=== PATIENT | male | born 1930 | race Caucasian/White ===

== ENCOUNTER 2017-05-27 11:49 | Emergency (ER) | payer MEDICARE, BC ==
--- NOTE | 2017-05-27 12:09 | Emergency Department Record ---
History of Present Illness - General Chief Complaint: Shortness of breath Stated Complaint: [place] Time Seen by Provider: 05/27/17 12:03 Source: Patient, Family Mode of Arrival: Ambulatory Limitations: No limitations - History of Present Illness Initial Comments: 86 yo male presents with about 2 weeks of shortness of breath that has been increasing. He has noted the symptoms with exertion. He has a home Biox monitor. At rest he is about 91%. With waking he drops to the low 80%'s. He has been developing chest pain with walking as well. He has taken nitro on at least three occasions the last week. He ran out of nitro. He has a known history of CHF and a pacemaker. He and his family deny a history of stents or CABG. 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 PCP is Dr Christopher. Complaint: Shortness of breath -: Week(s) (2) Severity: Moderate Quality: Aching Consistency: Intermittent Improves With: Rest Worsens With: Exertion Known History Of: Congestive heart failure Context: Occurred during exertion Associated Symptoms: Chest pain Treatments Prior to Arrival: None - Related Data Home Medications Medication Instructions Recorded Confirmed Last Taken Allopurinol [Zyloprim] 100 mg PO DAILY 05/27/17 05/27/17 1 Day Ago ~05/26/17 Amlodipine Besylate 5 mg PO DAILY 05/27/17 05/27/17 1 Day Ago ~05/26/17 Aspirin 81 mg PO DAILY 05/27/17 05/27/17 1 Day Ago ~05/26/17 Atorvastatin Calcium [Lipitor] 80 mg PO DAILY 05/27/17 05/27/17 1 Day Ago ~05/26/17 Buprenorphine [Butrans] 1 each TD ASDIR 05/27/17 05/27/17 1 Day Ago ~05/26/17 Calcitriol 0.25 mcg PO DAILY 05/27/17 05/27/17 1 Day Ago ~05/26/17 Calcium Carbonate [Calcium] 500 mg PO TID 05/27/17 05/27/17 1 Day Ago ~05/26/17 Enalapril Maleate [Vasotec] 10 mg PO BID 05/27/17 05/27/17 1 Day Ago ~05/26/17 Glipizide [Glucotrol] 10 mg PO BID 05/27/17 05/27/17 1 Day Ago ~05/26/17 Magnesium Oxide [Magnesium] 250 mg PO TID 05/27/17 05/27/17 1 Day Ago ~05/26/17 [place]-3 Fatty Acids/Fish Oil [Fish 1 each PO DAILY 05/27/17 05/27/17 1 Day Ago Oil 1,000 mg Capsule] ~05/26/17 Omeprazole Magnesium [Prilosec Otc] 20 mg PO DAILY 05/27/17 05/27/17 1 Day Ago ~05/26/17 Sotalol HCl [Sotalol] 80 mg PO BID 05/27/17 05/27/17 1 Day Ago ~05/26/17 Tamsulosin HCl [Flomax] 0.4 mg PO DAILY 05/27/17 05/27/17 1 Day Ago ~05/26/17 Warfarin Sodium [Coumadin] 2 mg PO DAILY 05/27/17 05/27/17 1 Day Ago ~05/26/17 Allergies Allergy/AdvReac Type Severity Reaction Status Date / Time No Known Drug Allergies Allergy Verified 05/27/17 12:04 Review of Systems Constitutional: Denies: Chills, Fever, Malaise, Weakness Eyes: Denies: Eye discharge, Eye pain, Photophobia, Vision change ENT: Denies: Congestion, Throat pain Respiratory: Reports: Dyspnea. Denies: Cough, Hemoptysis, Stridor, Wheezes Cardiovascular: Reports: Chest pain, Dyspnea on exertion, Edema. Denies: Arrhythmia, Palpitations, Syncope Endocrine: Denies: Fatigue, Polydipsia, Polyuria Gastrointestinal: Denies: Abdominal pain, Diarrhea, Nausea, Vomiting Genitourinary: Denies: Dysuria, Frequency, Hematuria Musculoskeletal: Denies: Arthralgia, Back pain, Myalgia Skin: Denies: Bruising, Change in color, Rash Neurological: Denies: Headache, Numbness, Vertigo, Weakness Psychiatric: Denies: Anxiety Hematological/Lymphatic: Denies: Blood Clots, Easy bleeding, Easy bruising, Swollen glands Physical Exam - General General Appearance: Alert, Oriented x3, Cooperative, No acute distress Limitations: No limitations - Head Head exam: Normal inspection - Eye Eye exam: Normal appearance. negative: Conjunctival injection, Periorbital swelling - ENT ENT exam: Normal exam, Mucous membranes moist Ear exam: Normal external inspection Nasal Exam: Normal inspection Mouth exam: Normal external inspection - Neck Neck exam: Normal inspection, Full ROM. negative: Tenderness - Respiratory Respiratory exam: Decreased breath sounds, Rales (in bases). negative: Accessory muscle use, Prolonged expiratory, Respiratory distress, Wheezes - Cardiovascular Cardiovascular Exam: Regular rate, Normal rhythm, Normal heart sounds Peripheral Pulses: 2+: Radial (R), Radial (L) - GI/Abdominal GI/Abdominal exam: Soft. negative: Tenderness - Rectal Rectal exam: Deferred - exam: Deferred - Extremities Extremities exam: Full ROM, Normal capillary refill, Pedal edema. negative: Joint swelling, Tenderness - Back Back exam: Reports: Normal inspection, Full ROM. Denies: CVA tenderness (R), CVA tenderness (L), Muscle spasm, Rash noted, Tenderness - Neurological Neurological exam: Alert, Normal gait, Oriented X3 - Psychiatric Psychiatric exam: Normal affect, Normal mood. negative: Agitated, Anxious - Skin Skin exam: Dry, Intact, Normal color, Warm Course - Reevaluation(s) Reevaluation #1: 05/27/17 12:46 EKG atrial paced, rate of 60, axis left, T wave inversion V1-V6, No old, QTC 541 , [place] Left. No acute changes on the CBC 05/27/17 12:47 05/27/17 13:29 The labs were reviewed. the CR is 1.5 The BNP is elevated at 9771 The Troponin is elevated at 0.035 CXR is consistent with CHF 05/27/17 13:32 Lasix and Aspirin given The patient and his daughter [place] [facility] [place] for further work up. 05/27/17 14:34 I ILDA Dumont of [facility] [place] the patient for transfer and cardiology consultation Medical Decision Making - Lab Data Result diagrams: 05/27/17 12:27 05/27/17 12:27 Disposition Disposition: Transfer Clinical Impression: Dyspnea Qualifiers: Dyspnea type: unspecified Qualified Code(s): R06.00 - Dyspnea, unspecified Chest pain Qualifiers: Chest pain type: unspecified Qualified Code(s): R07.9 - Chest pain, unspecified CHF (congestive heart failure) Qualifiers: Congestive heart failure chronicity: unspecified congestive heart failure chronicity Disposition: Acute Care Hospital Transfer [place] [facility] [place] For Transfer: CHF Accepting Physician: Julia Time Discussed w/Accepting Physician: 13:36 Condition: (2) Stable Forms: Patient Portal Access Time of Disposition: 13:36 Quality - Quality Measures Quality Measures: N/A - Blood Pressure Screening Does Patient Have Any of the Following: No Blood Pressure Classification: Hypertensive Reading Systolic Measurement: 149 Diastolic Measurement: 106 Screening for High Blood Pressure: < Pre-Hypertensive BP, F/U Documented > [ [id number]] Pre-Hypertensive Follow-up Interventions: Referral to alternative/primary care provider.
[2017-05-27 12:35] LABS: BASO % 0.4 % (0-6); EOS % 3.4 % (0-6); GRAN % 67.5 % (47-80); HEMATOCRIT 37.8 % (42.0-52.0); HEMOGLOBIN 11.4 gm/dl (14.0-18.0); LYMPH % 23.8 % (16-45); MEAN CELL VOLUME 94.7 fl (81-97); MEAN CORPUSCULAR HGB CONC 30.2 g/dl (32-36); MEAN PLATELET VOLUME 10.3 fl (7.4-10.4); MONO % 4.9 % (0-9); PLATELET COUNT 157 K/uL (130-400); RED BLOOD COUNT 3.99 M/uL (4.40-5.70); RED CELL DISTRIBUTION WIDTH 14.6 % (11.5-14.5); WHITE BLOOD COUNT W/O DIFF 6.7 K/uL (4.2-12.2)
[2017-05-27 12:36] LABS: MEAN CORPUSCULAR HEMOGLOBIN 28.5 pg (27-33)
[2017-05-27 12:55] LABS: BILIRUBIN,TOTAL 0.6 mg/dL (0.2-1.0); CREATININE 1.5 mg/dL (0.7-1.2); TOTAL PROTEIN 6.5 g/dL (6.6-8.7)
[2017-05-27 12:57] LABS: INR 2.57; PARTIAL THROMBOPLASTIN TIME 39.7 SECONDS (24.5-39.1)
[2017-05-27 13:00] LABS: ALB/GLOB RATIO 1.4 (1.1-1.8); ALBUMIN 3.8 g/dL (4.0-5.0)
[2017-05-27 13:04] LABS: CKMB 3.5 ng/mL (<6.73)
[2017-05-27] MEDS ORDERED: ASPIRIN 81 MG CHEWABLE TABLET PO ONE (13:29)
[2017-05-27] MEDS ORDERED: FUROSEMIDE IV 40MG/4ML VIAL IVP SCH (13:45)
--- NOTE | 2017-05-27 15:29 | RADIOLOGY REPORT ---
EXAM: CHEST, TWO VIEWS HISTORY: CHF. TECHNIQUE: Frontal and lateral views of the chest were obtained. Comparison: 08/11/14 chest. FINDINGS: Stable cardiomegaly. Atheromatous change of the thoracic aorta. Left sided pacing device. Osteopenia. Post surgical change of the right humerus. No pneumothorax. Interstitial edema with small bilateral effusions. IMPRESSION: CARDIOMEGALY WITH INTERSTITIAL EDEMA AND SMALL BILATERAL EFFUSIONS. JOB NUMBER: [id number] MTDD
== END 2017-05-27 16:08 | disposition short-term general hospital (02) ==
LOC: ER 11:49
DX: I50.9 Heart failure, unspecified (principal); R06.00 Dyspnea, unspecified; R07.9 Chest pain, unspecified; I48.91 Unspecified atrial fibrillation; I25.2 Old myocardial infarction; Z79.01 Long term (current) use of anticoagulants; Z87.891 Personal history of nicotine dependence; Z95.0 Presence of cardiac pacemaker
CPT/HCPCS: 71020; 80053; 82550; 82553; 83735; 83880; 84484; 85025; 85610; 85730; 93005; 93010; 96374; 99285; J1940